=== PATIENT | male | born 1995 | race Caucasian/White ===

== ENCOUNTER 2019-01-09 02:16 | Emergency (ER) | payer MEDICAID ==
[~2019-01-09] VITALS: Ht 172.7 cm; Wt 59.0 kg
[2019-01-09 02:19] VITALS: BP 102/51
[2019-01-09] MEDS ORDERED: TETANUS-DIPTH-ACEL PERTUSSIS 0.5ML SYRG IM ONE (03:45)
[2019-01-09] MEDS ORDERED: LIDOCAINE 1% HCL (LOCAL ANESTH.) INJ 20ML MDV IJ ONE (03:45)
== END 2019-01-09 04:40 | disposition home or self-care (01) ==
LOC: ER 02:18
DX: S61.212A Laceration without foreign body of right middle finger without damage to nail, initial encounter (principal); Z88.0 Allergy status to penicillin; W26.0XXA Contact with knife, initial encounter; Y93.89 Activity, other specified; Y99.8 Other external cause status; Y92.89 Other specified places as the place of occurrence of the external cause
CPT/HCPCS: 12001; 90471; 90715; 99283; J2001